=== PATIENT | male | born 1960 | race Caucasian/White ===

== ENCOUNTER 2025-02-24 11:42 | Outpatient (OUT) | payer BC, SELFPAY ==
--- NOTE | 2025-02-24 11:48 | ECG_ITS ---
[facility] Test Date: 2025-02-24 Pat Name: RICCI SERRANO Department: Room: - Gender: Male [employer] Administrative Assistant: : [id number] Requested By: [id number] Order Number: [id number] Reading MD: JACKIE ALICEA M.D. Measurements Intervals [place] Rate: 63 P: 96 [place]: 168 QRS: 81 QRSD: 88 T: 72 QT: 461 QTc: 472 Interpretive Statements SINUS RHYTHM PROLONGED QT INTERVAL Abnormal ECG No previous ECG available for comparison Electronically Signed On 02-25-2025 6:34:54 EDT by JACKIE ALICEA M.D.
== END 2025-02-24 11:43 | disposition home or self-care (01) ==
DX: I48.91 Unspecified atrial fibrillation (principal)
CPT/HCPCS: 93005

== ENCOUNTER 2025-02-25 11:43 | Outpatient (OUT) | payer BC, SELFPAY ==
--- NOTE | 2025-02-25 11:55 | ECG_ITS ---
[facility] Test Date: 2025-02-25 Pat Name: RICCI SERRANO Department: Room: - Gender: Male [employer] Wheel: : 1960 Requested By: [id number] Order Number: [id number] Reading MD: JACKIE ALICEA M.D. Measurements Intervals [place] Rate: 60 P: 87 [place]: 163 QRS: 77 QRSD: 92 T: 70 QT: 470 QTc: 473 Interpretive Statements SINUS RHYTHM POSSIBLE RIGHT VENTRICULAR CONDUCTION DELAY [RSR (QR) IN V1/V2] PROLONGED QT INTERVAL Compared to ECG 02/24/2025 09:53:43 No significant changes Electronically Signed On 02-26-2025 18:20:39 EDT by JACKIE ALICEA M.D.
== END 2025-02-25 11:44 | disposition home or self-care (01) ==
DX: I48.91 Unspecified atrial fibrillation (principal)
CPT/HCPCS: 93005